=== PATIENT | female | born 1980 | race Hispanic/Latino ===

== ENCOUNTER 2021-07-22 20:43 | Emergency (ER) | payer SELFPAY ==
[2021-07-22] MEDS ORDERED: Ketorolac Tromethamine 30 MG/ML VIAL ONE (23:46)
== END 2021-07-23 01:06 | disposition home or self-care (01) ==
LOC: ERS 20:43
DX: S80.01XA Contusion of right knee, initial encounter (principal); F17.200 Nicotine dependence, unspecified, uncomplicated; W18.30XA Fall on same level, unspecified, initial encounter
CPT/HCPCS: 96372; J1885

== ENCOUNTER 2021-07-23 22:07 | Emergency (ER) | payer SELFPAY ==
[2021-07-23] MEDS ORDERED: Ketorolac Tromethamine 30 MG/ML VIAL ONE (23:25)
[2021-07-23] MEDS ORDERED: diphenhydrAMINE 50 MG/ML VIAL ONE (23:25)
[2021-07-23] MEDS ORDERED: Metoclopramide HCl 10 MG/2 ML VIAL ONE (23:25)
[2021-07-23] MEDS ORDERED: Acetaminophen 500 MG TAB ONE (23:25)
== END 2021-07-24 01:15 | disposition home or self-care (01) ==
LOC: ERS 22:07
DX: R51.9 Headache, unspecified (principal); G43.909 Migraine, unspecified, not intractable, without status migrainosus; F17.290 Nicotine dependence, other tobacco product, uncomplicated
CPT/HCPCS: 96374; 96375; J1200; J1885; J2765

== ENCOUNTER 2021-07-27 02:02 | Emergency (ER) | payer SELFPAY ==
[2021-07-27] MEDS ORDERED: Sterile Water 10 ML ONE (02:05)
[2021-07-27] MEDS ORDERED: diphenhydrAMINE 25 MG CAP ONE (02:30)
[2021-07-27] MEDS ORDERED: Diazepam 5 MG TAB ONE (02:30)
== END 2021-07-27 04:04 | disposition home or self-care (01) ==
LOC: ERS 02:02
DX: F41.9 Anxiety disorder, unspecified (principal); G25.81 Restless legs syndrome; F17.290 Nicotine dependence, other tobacco product, uncomplicated
CPT/HCPCS: 99283